=== PATIENT | female | born 1955 | race Caucasian/White ===

== ENCOUNTER 2016-09-10 11:44 | Emergency (ER) | payer OTHER ==
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
== END 2016-09-10 14:20 | disposition home or self-care (01) ==
LOC: ER 11:44
DX: S00.93XA Contusion of unspecified part of head, initial encounter (principal); S70.11XA Contusion of right thigh, initial encounter; S20.20XA Contusion of thorax, unspecified, initial encounter; F32.9 Major depressive disorder, single episode, unspecified; J45.909 Unspecified asthma, uncomplicated; V49.50XA Passenger injured in collision with unspecified motor vehicles in traffic accident, initial encounter